=== PATIENT | female | born 1985 | race Two or more races ===

== ENCOUNTER 2024-01-03 09:53 | Outpatient (CLI) | payer OTHER | END 2024-01-03 10:15 | disposition home or self-care (01) | LOC: MRI 09:53 | DX: M25.512 Pain in left shoulder (principal); M75.42 Impingement syndrome of left shoulder; M25.511 Pain in right shoulder; M75.101 Unspecified rotator cuff tear or rupture of right shoulder, not specified as traumatic; M75.41 Impingement syndrome of right shoulder | CPT/HCPCS: 73221 ==